=== PATIENT | male | born 1995 | race Caucasian/White ===

== ENCOUNTER 2019-06-10 00:41 | Emergency (ER) | payer OTHER ==
[2019-06-10 04:47] LABS: Absolute Lymphocytes (CBC) 0.6 K/uL (0.7-4.9); Basophils % 0.2 % (0-1.3); Eosinophils % 0.1 % (0-4.4); Hematocrit 43.8 % (39.6-49.0); Lymphocytes % 11.5 % (15.3-44.8); Monocytes % 10.7 % (3.3-12.3); RBC Red Blood Cell Count 4.91 M/uL (4.33-5.43)
[2019-06-10 04:48] LABS: Albumin 4.1 g/dL (3.4-5.0); Bilirubin Direct 0.3 mg/dL (0-0.2); Bilirubin Total 1.6 mg/dL (0.2-1.0); Potassium 3.8 mmol/L (3.5-5.1); Protein, Total 7.3 g/dL (6.4-8.2)
--- NOTE | 2019-06-10 06:06 | ER ---
Nurse's Notes [facility] Name: Dakota Cahs Age: 23 yrs Sex: Male : 1995 Arrival Date: 06/10/2019 Time: 00:48 Bed 5 Private MD: Diagnosis: Unspecified abdominal pain;Enteritis Presentation: 06/10 00:56 Presenting complaint: Patient states: N/V/D central abd pain since noon. Transition of ak1 care: patient was not received from another setting of care. Onset of symptoms was June 10, 2019. Risk Assessment: Do you want to hurt yourself or someone else? Patient reports no desire to harm self or others. Initial Sepsis Screen: Does the patient meet any 2 criteria? No. Patient's initial sepsis screen is negative. Does the patient have a suspected source of infection? No. Patient's initial sepsis screen is negative. Care prior to arrival: None. 00:56 Method Of Arrival: Ambulatory ak1 00:56 Acuity: SELAM 3 ak1 Triage Assessment: 00:55 General: Appears in no apparent distress. Behavior is calm, cooperative. Pain: ak1 Complains of pain in umbilical area. GI: Reports upper abdominal pain, diarrhea, nausea, vomiting. Historical: - Allergies: 00:55 Sulfa (Sulfonamide Antibiotics); ak1 - Home Meds: 00:55 None [Active]; ak1 - PMHx: 00:55 None; ak1 - PSHx: 00:55 None; ak1 - Immunization history:: Adult Immunizations unknown. - Social history:: Smoking status: Patient/guardian denies using tobacco. - Ebola Screening: : No symptoms or risks identified at this time. - Family history:: not pertinent. - Hospitalizations: : No recent hospitalization is reported. Screenin:36 Abuse screen: Denies threats or abuse. Nutritional screening: No deficits noted. bb Tuberculosis screening: No symptoms or risk factors identified. Fall Risk None identified. Assessment: 01:20 General: Appears in no apparent distress. uncomfortable, Behavior is calm, cooperative. bb Pain: Complains of pain in abdomen. Neuro: Level of Consciousness is awake, alert, obeys commands, Oriented to person, place, time, situation. Cardiovascular: Heart tones S1 S2 present Capillary refill < 3 seconds Patient's skin is warm and dry. Pulses are palpable in right radial artery and left radial artery Edema is absent. Respiratory: Airway is patent Respiratory effort is even, unlabored, Respiratory pattern is regular. GI: Abdomen is non-distended, Bowel sounds present X 4 quads. Abd is soft X 4 quads Abdomen is tender to palpation in left upper quadrant Reports upper abdominal pain, diarrhea, vomiting. Derm: Skin is pink, warm \T\ dry. Musculoskeletal: Circulation, motion, and sensation intact. 02:40 Reassessment: Patient and/or family updated on plan of care and expected duration. Pain bb level reassessed. Patient is alert, oriented x 3, equal unlabored respirations, skin warm/dry/pink. pt states he is still having abdominal pain Dr Patel notified new orders received pt medicated see JAN. CT notified pt ready for cat scan. 03:40 Reassessment: Patient and/or family updated on plan of care and expected duration. Pain bb level reassessed. Patient is alert, oriented x 3, equal unlabored respirations, skin warm/dry/pink. Patient states feeling better. 04:32 Reassessment: pt appears to be sleeping, eyes closed, resp unlabored, IV site intact, bb no erythema or edema noted. 04:59 Reassessment: pt transported to CT via wheelchair with technology officer. bb 05:41 Reassessment: Patient and/or family updated on plan of care and expected duration. Pain bb level reassessed. Patient is alert, oriented x 3, equal unlabored respirations, skin warm/dry/pink. IV site intact with no erythema or edema noted awaiting results of CT scan Patient states feeling better. Patient states symptoms have improved. Vital Signs: 00:55 BP 130 / 76; Pulse 105; Resp 18; Temp 98.4; Pulse Ox 97% on R/A; Weight 104.33 kg (R); ak1 Height 5 ft. 11 in. (180.34 cm) (R); Pain 6/10; 02:53 BP 111 / 71; Pulse 97; Resp 16 S; Pulse Ox 99% on R/A; bb 03:45 BP 115 / 73; Pulse 76; Resp 16; Pulse Ox 97% on R/A; Pain 0/10; bb 04:33 BP 113 / 80; Pulse 83; Resp 16; Pulse Ox 96% on R/A; bb 05:41 BP 111 / 68; Pulse 92; Resp 16 S; Temp 99.6(O); Pulse Ox 98% on R/A; Pain 2/10; bb 06:20 BP 119 / 78; Pulse 81; Resp 18; Pulse Ox 96% on R/A; Pain 1/10; tl2 00:55 Body Mass Index 32.08 (104.33 kg, 180.34 cm) ak1 ED Course: 00:48 Patient arrived in ED. ds1 00:55 Arm band placed on Patient placed in an exam room, on a stretcher, Patient notified of ak1 wait time. 00:57 Triage completed. ak1 01:00 Louie Patel MD is Attending Physician. rn 01:20 Initial lab(s) drawn, by me, sent to lab. Inserted saline lock: 20 gauge in right bb antecubital area, using aseptic technique. Blood collected. 01:36 Gaye Neal RN is Primary Nurse. bb 01:36 Patient has correct armband on for positive identification. Placed in gown. Bed in low bb position. Call light in reach. Side rails up X 1. Adult w/ patient. Pulse ox on. NIBP on. Warm blanket given. 05:22 CT Abd/Pelvis - IV Contrast Only In Process Unspecified. EDMS 06:20 No provider procedures requiring assistance completed. IV discontinued, intact, tl2 bleeding controlled, No redness/swelling at site. Pressure dressing applied. Administered Medications: 01:27 Drug: Phenergan 12.5 mg Route: IVP; Site: right antecubital; bb 02:51 Follow up: Response: No adverse reaction; No change in condition bb 01:27 Drug: NS 0.9% 1000 ml Route: IV; Rate: 1000 ml; Site: right antecubital; bb 02:25 Follow up: IV Status: Completed infusion; IV Intake: 1000ml bb 03:05 Drug: Demerol 25 mg Route: IVP; Site: right antecubital; bb 04:00 Follow up: Response: Pain is decreased bb Intake: 02:25 IV: 1000ml; Total: 1000ml. bb Outcome: 06:04 Discharge ordered by . rn 06:20 Discharged to home ambulatory, with family. tl2 06:20 Condition: stable 06:20 Discharge instructions given to patient, Instructed on discharge instructions, follow up and referral plans. medication usage, Demonstrated understanding of instructions, follow-up care, medications, Prescriptions given X 2. 06:22 Patient left the ED. tl2 Signatures: Dispatcher [employer] EDMS Jeannie Hale Gaye Wallace, RN RN bb Louie Patel MD MD rn Krenek, Amber, RN RN ak1 Nelsy Hopson RN RN tl2 Corrections: (The following items were deleted from the chart) 04:32 03:58 BP 115 / 73; Pulse 87bpm; Resp 18bpm; Pulse Ox 96% RA; tl2 bb 05:00 04:32 Reassessment: pt appears to be sleeping, eyes closed, resp unlabored, IV site bb intact, no erythema or edema noted, pt awaiting CT results bb
--- NOTE | 2019-06-10 06:06 | EDPHYS ---
Physician Documentation [facility] Name: Dakota Cash Age: 23 yrs Sex: Male : 1995 Arrival Date: 06/10/2019 Time: 00:48 Bed 5 Private MD: ED Physician Louie Patel HPI: 06/10 02:14 This 23 yrs old Male presents to ER via Ambulatory with complaints of rn Abdominal Pain, Vomiting. 02:14 The patient presents to the emergency department with nausea, vomiting, abdominal pain. rn Onset: The symptoms/episode began/occurred yesterday. Possible causes: unknown. The symptoms are aggravated by nothing. The symptoms are alleviated by nothing. Severity of symptoms: At their worst the symptoms were moderate in the emergency department the symptoms are unchanged. The patient has not experienced similar symptoms in the past. Reports periumbilical pain assoc with vomiting and diarrhea, began yesterday afternoon, not improving, no migration, no appetite, no fever, no blood. . Historical: - Allergies: 00:55 Sulfa (Sulfonamide Antibiotics); ak1 - Home Meds: 00:55 None [Active]; ak1 - PMHx: 00:55 None; ak1 - PSHx: 00:55 None; ak1 - Immunization history:: Adult Immunizations unknown. - Social history:: Smoking status: Patient/guardian denies using tobacco. - Ebola Screening: : No symptoms or risks identified at this time. - Family history:: not pertinent. - Hospitalizations: : No recent hospitalization is reported. ROS: 02:14 Constitutional: Negative for fever, chills, and weight loss, Eyes: Negative for injury, rn pain, redness, and discharge, Neck: Negative for injury, pain, and swelling, Cardiovascular: Negative for chest pain, palpitations, and edema, Respiratory: Negative for shortness of breath, cough, wheezing, and pleuritic chest pain, Abdomen/GI: + abd pain and vomiting/diarrhea MS/Extremity: Negative for injury and deformity, Skin: Negative for injury, rash, and discoloration, Neuro: Negative for headache, weakness, numbness, tingling, and seizure. Exam: 02:14 Constitutional: This is a well developed, well nourished patient who is awake, alert, rn and in no acute distress. Head/Face: Normocephalic, atraumatic. ENT: dry MM Cardiovascular: Tachycardic, regular, no murmur Respiratory: Lungs have equal breath sounds bilaterally, clear to auscultation. No increased work of breathing, no retractions or nasal flaring. Abdomen/GI: soft, + periumbilical tenderness, no rebound, no peritoneal signs, no tenderness RLQ Skin: Warm, dry MS/ Extremity: Pulses equal, no cyanosis. Neurovascular intact. Full, normal range of motion. Equal circumference. Neuro: Awake and alert, GCS 15, oriented to person, place, time, and situation. Cranial nerves II-XII grossly intact. Motor strength 5/5 in all extremities. Sensory grossly intact. Cerebellar exam normal. Normal gait. Vital Signs: 00:55 BP 130 / 76; Pulse 105; Resp 18; Temp 98.4; Pulse Ox 97% on R/A; Weight 104.33 kg (R); ak1 Height 5 ft. 11 in. (180.34 cm) (R); Pain 6/10; 02:53 BP 111 / 71; Pulse 97; Resp 16 S; Pulse Ox 99% on R/A; bb 03:45 BP 115 / 73; Pulse 76; Resp 16; Pulse Ox 97% on R/A; Pain 0/10; bb 04:33 BP 113 / 80; Pulse 83; Resp 16; Pulse Ox 96% on R/A; bb 05:41 BP 111 / 68; Pulse 92; Resp 16 S; Temp 99.6(O); Pulse Ox 98% on R/A; Pain 2/10; bb 06:20 BP 119 / 78; Pulse 81; Resp 18; Pulse Ox 96% on R/A; Pain 1/10; tl2 00:55 Body Mass Index 32.08 (104.33 kg, 180.34 cm) ak1 MDM: 01:00 Patient medically screened. rn 01:06 Refusal of service: The patient/guardian displays adequate decision making capability rn and despite a detailed discussion of alternatives, benefits, risks, and consequences refuses: CT Scan. 06:01 Differential diagnosis: Nonspecific abd pain, gastritis, appendicitis, diverticulitis, rn viral gastroenteritis, gastroenteritis. Data reviewed: vital signs, nurses notes, lab test result(s), radiologic studies, CT scan, and as a result, I will discharge patient. Counseling: I had a detailed discussion with the patient and/or guardian regarding: the historical points, exam findings, and any diagnostic results supporting the discharge/admit diagnosis, lab results, radiology results, the need for outpatient follow up, to return to the emergency department if symptoms worsen or persist or if there are any questions or concerns that arise at home. Response to treatment: the patient's symptoms have markedly improved after treatment, and as a result, I will discharge patient. Special discussion: I discussed with the patient/guardian in detail that at this point there is no indication for admission to the hospital. It is understood, however, that if the symptoms persist or worsen the patient needs to return immediately for re-evaluation. 06/10 01:06 Order name: Basic Metabolic Panel; Complete Time: 04:51 rn 06/10 01:06 Order name: CBC with Diff; Complete Time: 04:51 rn 06/10 01:06 Order name: Hepatic Function; Complete Time: 04:51 rn 06/10 01:06 Order name: Lipase; Complete Time: 04:51 rn 06/10 02:49 Order name: CT Abd/Pelvis - IV Contrast Only rn 06/10 01:06 Order name: IV Saline Lock; Complete Time: 01:28 rn 06/10 01:06 Order name: Labs collected and sent; Complete Time: 01:28 rn Administered Medications: 01:27 Drug: Phenergan 12.5 mg Route: IVP; Site: right antecubital; bb 02:51 Follow up: Response: No adverse reaction; No change in condition bb 01:27 Drug: NS 0.9% 1000 ml Route: IV; Rate: 1000 ml; Site: right antecubital; bb 02:25 Follow up: IV Status: Completed infusion; IV Intake: 1000ml bb 03:05 Drug: Demerol 25 mg Route: IVP; Site: right antecubital; bb 04:00 Follow up: Response: Pain is decreased bb Disposition: 06/10/19 06:04 Discharged to Home. Impression: Unspecified abdominal pain, Enteritis. - Condition is Stable. - Discharge Instructions: Abdominal Pain, Adult, Viral Gastroenteritis, Adult. - Prescriptions for Zofran ODT 4 mg Oral tablet,disintegrating - place 1 tablet by TRANSLINGUAL route every 8 hours As needed; 20 tablet. Tylenol- Codeine #3 300-30 mg Oral Tablet - take 1 tablet by ORAL route every 6 hours As needed; 15 tablet. - Medication Reconciliation Form, Thank You Letter, Antibiotic Education, Prescription Opioid Use form. - Follow up: Private Physician; When: As needed; Reason: Recheck today's complaints, Re-evaluation by your physician. - Problem is new. - Symptoms have improved. Signatures: Dispatcher [employer] EDGaye Machado RN RN Louie Ivory MD MD rn Krenek, Amber, RN RN ak1 Nelsy Hopson RN RN tl2 Corrections: (The following items were deleted from the chart) 06:22 06:04 06/10/2019 06:04 Discharged to Home. Impression: Unspecified abdominal pain; tl2 Enteritis. Condition is Stable. Forms are Medication Reconciliation Form, Thank You Letter, Antibiotic Education, Prescription Opioid Use. Follow up: Private Physician; When: As needed; Reason: Recheck today's complaints, Re-evaluation by your physician. Problem is new. Symptoms have improved. rn
--- NOTE | 2019-06-10 10:00 | RAD REPORT ---
EXAM DESCRIPTION: CT ABDOMEN AND PELVIS WITH CONTRAST CLINICAL HISTORY: Periumbilical pain COMPARISON: None Available. TECHNIQUE: CT of the abdomen and pelvis performed following IV administration of iodinated contrast. DLP: 2197.9 mGycm FINDINGS: Lung Bases: The visualized lung bases are clear. Bones: No destructive bone lesions identified. Abdomen: Liver: The liver has normal size and decreased density. No intrahepatic mass or biliary dilatation. Gallbladder: No calcified gallstones. Spleen, Pancreas, and Adrenal Glands: The spleen, pancreas, and adrenal glands are unremarkable. Kidneys: The kidneys have normal size and contour without evidence of solid mass or hydronephrosis. Vasculature: The aorta and IVC have normal caliber and position. The portal vein is patent. The pro ximal visceral and renal arteries are patent. Stomach: The stomach and duodenum have normal course. Other: No free intraperitoneal air. Small fat-containing umbilical hernia. No free fluid or lymphad enopathy. Pelvis: Bladder: Urinary bladder is unremarkable. Bowel: No dilated loops of large or small bowel. Appendix: Normal appendix. Pelvis: Prostate is not enlarged. IMPRESSION: 1. No acute inflammatory or obstructive process identified. 2. Hepatic steatosis. This exam was performed according to our departmental dose-optimization program, which includes autom ated exposure control, adjustment of the mA and/or kV according to patient size and/or use of iterati ve reconstruction technique. Electronically signed by: Dominic Brooks 06/10/2019 5:53 AM CDT Due to temporary technical issues with the PACS/Fluency reporting system, reports are being signed by the in house radiologist as a courtesy to ensure prompt reporting. The interpreting radiologist is f ully responsible for the content of the report.
== END 2019-06-10 06:22 | disposition home or self-care (01) ==
LOC: ER 00:41
DX: K52.9 Noninfective gastroenteritis and colitis, unspecified (principal); Z88.2 Allergy status to sulfonamides
CPT/HCPCS: 36415; 74177; 80048; 80076; 83690; 85025; 96361; 96374; 96375; 99284; Q9967

== ENCOUNTER 2021-12-22 01:42 | Observation (INO) | payer OTHER ==
[2021-12-22 02:18] LABS: Absolute Lymphocytes (CBC) 3.3 K/uL (0.7-4.9); Hematocrit 43.6 % (39.6-49.0); Lymphocytes % 48.8 % (15.3-44.8); MPV 7.5 fL (7.6-11.3); RBC Red Blood Cell Count 4.88 M/uL (4.33-5.43)
[2021-12-22 02:38] LABS: Albumin 3.7 g/dL (3.4-5.0); Bilirubin Direct 0.1 mg/dL (0-0.2); Bilirubin Total 0.7 mg/dL (0.2-1.0); Potassium 3.7 mmol/L (3.5-5.1); Protein, Total 7.1 g/dL (6.4-8.2)
[2021-12-22] MEDS ORDERED: NA CHLORIDE 0.9% 1,000 ML ONE ×2 (03:15→04:50)
[2021-12-22 04:23] LABS: Urine Blood Negative (Negative); Urine Glucose Negative (Negative); Urine Protein Negative (Negative); Urine Specific Gravity 1.025 (1.005-1.030); Urine pH 5.5 (5.0-7.0)
--- NOTE | 2021-12-22 04:31 | EDPHYS ---
Physician Documentation [facility] Name: Dakota Cash Age: 26 yrs Sex: Male : 1995 Arrival Date: 12/22/2021 Time: 01:44 Bed 5 Private MD: ED Physician Souleymane Jones HPI: 12/22 01:48 This 26 yrs old Male presents to ER via Unassigned with complaints of Abdominal Pain.. mh7 01:49 The patient presents with abdominal pain in the epigastric area. Onset: The mh7 symptoms/episode began/occurred this morning, today. The symptoms radiate to back. Associated signs and symptoms: Pertinent negatives: nausea, vomiting, and diarrhea, nausea and vomiting, anorexia, blood in stools, chest pain, constipation, diarrhea, dysuria, fever, headache, hematuria, nausea, palpitations, shortness of breath, testicular pain, vomiting, vomiting blood. The symptoms are described as intermittent, vague, waxing/waning. Modifying factors: The symptoms are alleviated by nothing, the symptoms are aggravated by drinking. Severity of pain: At its worst the pain was moderate today, in the emergency department the pain has improved markedly. 01:49 Patient states that he started having pain in his upper abdominal area after he drank a mh7 bottle of water this morning. He states the pain radiated to his back. He denies any chest pain, shortness of breath, fever, cough, nausea, vomiting, diarrhea, dysuria, or other complaints. He reports that his symptoms have mostly resolved.. Historical: - Allergies: 01:54 Sulfa (Sulfonamide Antibiotics); sm5 - Home Meds: 01:54 None [Active]; sm5 - PMHx: 01:54 None; sm5 - PSHx: 01:54 Vasectomy; sm5 - Immunization history:: Client reports having NOT received the Covid vaccine. - Social history:: Smoking status: Patient denies any tobacco usage or history of. ROS: 01:49 Constitutional: Negative for fever, chills, and weight loss, Eyes: Negative for injury, mh7 pain, redness, and discharge, ENT: Negative for injury, pain, and discharge, Neck: Negative for injury, pain, and swelling, Cardiovascular: Negative for chest pain, palpitations, and edema, Respiratory: Negative for shortness of breath, cough, wheezing, and pleuritic chest pain, Back: Negative for injury and pain, : Negative for injury, bleeding, discharge, and swelling, MS/Extremity: Negative for injury and deformity, Skin: Negative for injury, rash, and discoloration, Neuro: Negative for headache, weakness, numbness, tingling, and seizure, Psych: Negative for depression, anxiety, suicide ideation, homicidal ideation, and hallucinations, Allergy/Immunology: Negative for hives, rash, and allergies, Endocrine: Negative for neck swelling, polydipsia, polyuria, polyphagia, and marked weight changes, Hematologic/Lymphatic: Negative for swollen nodes, abnormal bleeding, and unusual bruising. Exam: 01:49 Constitutional: This is a well developed, well nourished patient who is awake, alert, mh7 and in no acute distress. Head/Face: Normocephalic, atraumatic. Eyes: Pupils equal round and reactive to light, extra-ocular motions intact. Lids and lashes normal. Conjunctiva and sclera are non-icteric and not injected. Cornea within normal limits. Periorbital areas with no swelling, redness, or edema. Neck: Trachea midline, no thyromegaly or masses palpated, and no cervical lymphadenopathy. Supple, full range of motion without nuchal rigidity, or vertebral point tenderness. No Meningismus. Chest/axilla: Normal chest wall appearance and motion. Nontender with no deformity. No lesions are appreciated. Cardiovascular: Regular rate and rhythm with a normal S1 and S2. No gallops, murmurs, or rubs. Normal PMI, no JVD. No pulse deficits. Respiratory: Lungs have equal breath sounds bilaterally, clear to auscultation and percussion. No rales, rhonchi or wheezes noted. No increased work of breathing, no retractions or nasal flaring. Back: No spinal tenderness. No costovertebral tenderness. Full range of motion. Skin: Warm, dry with normal turgor. Normal color with no rashes, no lesions, and no evidence of cellulitis. MS/ Extremity: Pulses equal, no cyanosis. Neurovascular intact. Full, normal range of motion. Neuro: Awake and alert, GCS 15, oriented to person, place, time, and situation. Cranial nerves II-XII grossly intact. Motor strength 5/5 in all extremities. Sensory grossly intact. Cerebellar exam normal. Normal gait. Psych: Awake, alert, with orientation to person, place and time. Behavior, mood, and affect are within normal limits. 01:49 Abdomen/GI: Inspection: obese Bowel sounds: normal, in all quadrants, Palpation: mild mh7 abdominal tenderness, in the epigastric area, mass, is not appreciated, rebound tenderness, is not appreciated, voluntary guarding, is not appreciated, involuntary guarding, is not appreciated, no appreciated organomegaly, Rectal exam: the exam is deferred, because of patient request, Indicators: McBurney's point is not tender, Millan's sign is negative, Rovsing's sign is negative, Obturator sign is negative, Psoas sign is negative, Liver: no appreciated palpable abnormalities, Hernia: not appreciated. Vital Signs: 01:52 BP 120 / 98; Pulse 98; Resp 18; Temp 98.1(O); Pulse Ox 98% on R/A; Weight 106.59 kg; [facility] Height 5 ft. 11 in. (180.34 cm); 02:00 BP 115 / 91; Pulse 84; Resp 18 S; Pulse Ox 98% on R/A; al4 03:00 BP 122 / 93; Pulse 79; Resp 18 S; Pulse Ox 100% on R/A; al4 03:30 BP 123 / 95; Pulse 83; Resp 20 S; Pulse Ox 100% on R/A; al4 04:00 BP 129 / 89; Pulse 91; Resp 18 S; Pulse Ox 100% on R/A; al4 05:00 BP 118 / 88; Pulse 69; Resp 15 S; Pulse Ox 99% on R/A; al4 01:52 Body Mass Index 32.78 (106.59 kg, 180.34 cm) [facility] MDM: 04:28 Differential diagnosis: bowel obstruction, cholecystitis, Cholelithiasis, gastritis, mh7 gastroesophageal reflux disease, non-specific abd pain, pancreatitis, Peptic Ulcer Disease, Ureterolithiasis. Data reviewed: vital signs, nurses notes, lab test result(s), cardiac enzymes, CBC, electrolytes, EKG, radiologic studies, CT scan, plain films. Data interpreted: Pulse oximetry: on room air is 100 %. Interpretation: normal. Counseling: I had a detailed discussion with the patient and/or guardian regarding: the historical points, exam findings, and any diagnostic results supporting the discharge/admit diagnosis, lab results, radiology results, the need for further work-up and treatment in the hospital. Response to treatment: the patient's symptoms have mildly improved after treatment. 04:30 Patient medically screened. [facility] 12/22 01:47 Order name: Basic Metabolic Panel; Complete Time: 03:02 [facility] 12/22 01:47 Order name: CBC with Diff; Complete Time: 02:29 [facility] 12/22 01:47 Order name: Hepatic Function; Complete Time: 03:02 [facility] 12/22 01:47 Order name: Lipase; Complete Time: 03:02 [facility] 12/22 02:02 Order name: Troponin High Sensitivity [facility] 12/22 02:02 Order name: Troponin High Sensitivity; Complete Time: 03:02 [facility] 12/22 02:02 Order name: Chest Single View XRAY [facility] 12/22 03:03 Order name: CT Abd/Pelvis - IV Contrast Only [facility] 12/22 03:35 Order name: ETOH Level [facility] 12/22 03:55 Order name: Lipid Profile [facility] 12/22 03:56 Order name: COVID-19 SARS RT PCR (Document "Date of Onset" if Symptomatic) [facility] 12/22 04:21 Order name: Urine Dipstick-Ancillary [facility] 12/22 01:47 Order name: IV Saline Lock; Complete Time: 01:52 [facility] 12/22 01:47 Order name: Labs collected and sent; Complete Time: 02:00 [facility] 12/22 01:47 Order name: Urine Dipstick-Ancillary (obtain specimen); Complete Time: 04:23 [facility] 12/22 01:47 Order name: EKG; Complete Time: 01:48 [facility] 12/22 01:47 Order name: EKG - Nurse/Tech; Complete Time: 01:52 [facility] Administered Medications: 03:38 Drug: NS 0.9% 1000 ml Route: IV; Rate: 1000 ml; Site: right antecubital; al4 04:57 Follow up: Response: No adverse reaction; IV Status: Completed infusion; IV Intake: al4 1000ml 04:52 Drug: NS 0.9% 1000 ml Route: IV; Rate: 1000 ml; Site: right antecubital; al4 05:46 Follow up: Response: No adverse reaction; IV Status: Completed infusion; IV Intake: al4 1000ml Disposition Summary: 12/22/21 04:30 Hospitalization Ordered Hospitalization Status: Inpatient Admission [facility] Provider: Horace Rueda Location: Telemetry/MedSur (Inpatient) [facility] Condition: Stable [facility] Problem: new [facility] Symptoms: have improved [facility] Bed/Room Type: Standard [facility] Room Assignment: 205(12/22/21 04:55) cg Diagnosis - Acute Pancreatitis [facility] Forms: - Medication Reconciliation Form [facility] - SBAR form [facility] Signatures: Dispatcher [employer] Zeina Noel, RN RN cg Souleymane Jones MD MD 7 Chemo Godwin RN RN as6 Cecilio Durán4 Marguerite Corona RN RN sm5 Corrections: (The following items were deleted from the chart) 04:55 04:30 [facility] cg
--- NOTE | 2021-12-22 04:31 | P.HP ---
Certification for Inpatient Patient admitted to: Inpatient With expected LOS: >2 Midnights Patient will require the following post-hospital care: None Practitioner: I am a practitioner with admitting privileges, knowledge of patient current condition, hospital course, and medical plan of care. Services: Services provided to patient in accordance with Admission requirements found in Title 42 Section 412.3 of the Code of Federal Regulations Patient History Date of Service: 12/22/21 Reason for admission: Acute pancreatitis History of Present Illness: 26-year-old male with no known past medical history presents the emergency department for epigastric pain. Patient reports having a vasectomy earlier this morning around 10 AM, after waking from a nap attempted to drink some water and shortly after developed some significant epigastric pain. Patient was evaluated in the emergency department labs were significant for lipase of 4250 alcohol level negative, patient does not drink frequently reports he drinks maybe once a month, lipid panel pending. CT abdomen pelvis negative for any acute findings ED provider wishes to admit for further evaluation and management of acute pancreatitis. - Past Medical/Surgical History -: None -: Vasectomy Psychosocial/ Personal History: Patient lives at home with - Social History Smoking Status: Never smoker Alcohol use: No CD- Drugs: No Caffeine use: No Place of Residence: Home Review of Systems 10-point ROS is otherwise unremarkable Gastrointestinal: Abdominal Pain Physical Examination - Physical Exam General: Alert, In no apparent distress, Oriented x3 HEENT: Atraumatic, PERRLA, Mucous membr. moist/pink, EOMI, Sclerae nonicteric Neck: Supple, 2+ carotid pulse no bruit, No LAD, Without JVD or thyroid abnormality Respiratory: Clear to auscultation bilaterally, Normal air movement Cardiovascular: Regular rate/rhythm, Normal S1 S2 Gastrointestinal: Normal bowel sounds, Tenderness (Mild epigastric tenderness) Musculoskeletal: No tenderness Integumentary: No rashes Neurological: Normal gait, Normal speech, Normal strength at 5/5 x4 extr, Normal tone, Normal affect Lymphatics: No axilla or inguinal lymphadenopathy - Studies Laboratory Data (last 24 hrs) 12/22/21 01:50: Triglycerides 117, Cholesterol 210 H, HDL Cholesterol 44, Cholesterol/HDL Ratio 4.77 12/22/21 01:50: WBC 6.70, Hgb 14.7, Hct 43.6, Plt Count 261 12/22/21 01:50: Sodium 140, Potassium 3.7, BUN 15, Creatinine 1.17, Glucose 106, Total Bilirubin 0.7, AST 16, ALT 37, Alkaline Phosphatase 64, Lipase 4250 H Assessment and Plan - Plan Assessment: Acute pancreatitis unknown etiology Plan: Acute pancreatitis unknown etiology: N.p.o., IVF, as needed pain medications, trend lipase level. CT negative for acute findings no gallbladder findings. No alcohol abuse reported, lipid panel pending. Patient did have vasectomy today this morning. Anticipate clinical improvement over the course of next 24 to 48 hours, possibly clear liquids this evening. DVT PPX: Lovenox Code status: Full Discharge Plan: Home Plan to discharge in: 72 Hours - Advance Directives Does patient have a Living Will: No Does patient have a Durable POA for Healthcare: No - Code Status/Comfort Care Code Status Assessed: Yes (Full code) Critical Care: No Time Spent Managing Pts Care (In Minutes): 55
--- NOTE | 2021-12-22 04:31 | ER ---
Nurse's Notes [facility] Name: Dakota Cash Age: 26 yrs Sex: Male : 1995 Arrival Date: 12/22/2021 Time: 01:44 Bed 5 Private MD: Diagnosis: Acute Pancreatitis Presentation: 12/22 01:52 Chief complaint: EMS states: pt had vasectomy at 10am. went to bed and woke up, drank sm5 water, started having mid epigastric/chest pain that went to his back. Coronavirus screen: At this time, the client does not indicate any symptoms associated with coronavirus-19. Ebola Screen: No symptoms or risks identified at this time. Initial Sepsis Screen: Does the patient meet any 2 criteria? No. Patient's initial sepsis screen is negative. Does the patient have a suspected source of infection? No. Patient's initial sepsis screen is negative. Risk Assessment: Do you want to hurt yourself or someone else? Patient reports no desire to harm self or others. Onset of symptoms was December 22, 2021. 01:52 Method Of Arrival: EMS: [place] [id number] 01:52 Acuity: SELAM 3 5 Triage Assessment: 01:55 General: Appears in no apparent distress. Behavior is appropriate for age. Pain: 5 Complains of pain in chest and epigastric. Cardiovascular: Reports chest pain, Capillary refill < 3 seconds Patient's skin is warm and dry. Rhythm is sinus rhythm. Respiratory: No deficits noted. Airway is patent Trachea midline Respiratory effort is even, unlabored. GI: Reports epigastric pain. Historical: - Allergies: 01:54 Sulfa (Sulfonamide Antibiotics); sm5 - Home Meds: 01:54 None [Active]; sm5 - PMHx: 01:54 None; sm5 - PSHx: 01:54 Vasectomy; sm5 - Immunization history:: Client reports having NOT received the Covid vaccine. - Social history:: Smoking status: Patient denies any tobacco usage or history of. Screenin:54 Abuse screen: Denies threats or abuse. Denies injuries from another. Nutritional sm5 screening: No deficits noted. Tuberculosis screening: No symptoms or risk factors identified. Fall Risk No fall in past 12 months (0 pts). No secondary diagnosis (0 pts). IV access (20 points). Ambulatory Aid- None/Bed Rest/Nurse Assist (0 pts). Gait- Normal/Bed Rest/Wheelchair (0 pts) Mental Status- Oriented to own ability (0 pts). Total Domínguez Fall Scale indicates No Risk (0-24 pts). Assessment: 01:56 Pain: Pain radiates to back Pain began 1 hour ago. [facility] 02:00 General: Appears in no apparent distress. comfortable, Behavior is calm, cooperative, al4 appropriate for age. Pain: Complains of pain in upper abdominal Pain radiates to back Pain began suddenly after drinking water. Neuro: Level of Consciousness is awake, alert, obeys commands, Oriented to person, place, time, situation. Cardiovascular: Capillary refill < 3 seconds Patient's skin is warm and dry. Rhythm is sinus rhythm. Respiratory: Airway is patent Respiratory effort is even, unlabored, Respiratory pattern is regular, symmetrical. GI: Abdomen is non-distended, Reports upper abdominal pain, after drinking water. : No signs and/or symptoms were reported regarding the genitourinary system. EENT: No signs and/or symptoms were reported regarding the EENT system. Derm: No signs and/or symptoms reported regarding the dermatologic system. Musculoskeletal: Capillary refill < 3 seconds, Range of motion: intact in all extremities. 03:00 Reassessment: Patient is alert, oriented x 3, equal unlabored respirations, skin al4 warm/dry/pink. 04:00 Reassessment: Patient is alert, oriented x 3, equal unlabored respirations, skin al4 warm/dry/pink. 04:53 Reassessment: Patient is alert, oriented x 3, equal unlabored respirations, skin al4 warm/dry/pink. patient updated on plan of care. patient is resting comfortably. 05:15 Reassessment: Attempted report. Spoke to Amira, I was told she will call me back. al4 Vital Signs: 01:52 BP 120 / 98; Pulse 98; Resp 18; Temp 98.1(O); Pulse Ox 98% on R/A; Weight 106.59 kg; sm5 Height 5 ft. 11 in. (180.34 cm); 02:00 BP 115 / 91; Pulse 84; Resp 18 S; Pulse Ox 98% on R/A; al4 03:00 BP 122 / 93; Pulse 79; Resp 18 S; Pulse Ox 100% on R/A; al4 03:30 BP 123 / 95; Pulse 83; Resp 20 S; Pulse Ox 100% on R/A; al4 04:00 BP 129 / 89; Pulse 91; Resp 18 S; Pulse Ox 100% on R/A; al4 05:00 BP 118 / 88; Pulse 69; Resp 15 S; Pulse Ox 99% on R/A; al4 01:52 Body Mass Index 32.78 (106.59 kg, 180.34 cm) 5 ED Course: 01:44 Patient arrived in ED. wm 01:46 Souleymane Jones MD is Attending Physician. 7 01:48 Cecilio Durán is Primary Nurse. al4 01:49 Inserted saline lock: 20 gauge in right antecubital area, using aseptic technique. al4 Blood collected. 01:54 Triage completed. 5 01:55 Arm band placed on left wrist. 5 01:55 Patient has correct armband on for positive identification. Bed in low position. Call [facility] light in reach. Side rails up X2. machine installer on. Pulse ox on. NIBP on. 01:56 No provider procedures requiring assistance completed. Patient maintains SpO2 5 saturation greater than 95% on room air. 02:00 Basic Metabolic Panel Sent. 5 02:00 CBC with Diff Sent. 5 02:01 Hepatic Function Sent. 5 02:01 Lipase Sent. sm5 02:15 Chest Single View XRAY In Process Unspecified. EDMS 03:13 Troponin High Sensitivity Sent. sm5 03:34 CT Abd/Pelvis - IV Contrast Only In Process Unspecified. EDMS 04:29 Horace Rueda DO is Hospitalizing Provider. [facility] 05:42 Patient admitted, IV remains in place. al4 Administered Medications: 03:38 Drug: NS 0.9% 1000 ml Route: IV; Rate: 1000 ml; Site: right antecubital; al4 04:57 Follow up: Response: No adverse reaction; IV Status: Completed infusion; IV Intake: al4 1000ml 04:52 Drug: NS 0.9% 1000 ml Route: IV; Rate: 1000 ml; Site: right antecubital; al4 05:46 Follow up: Response: No adverse reaction; IV Status: Completed infusion; IV Intake: al4 1000ml Intake: 04:57 IV: 1000ml; Total: 1000ml. al4 05:46 IV: 1000ml; Total: 2000ml. al4 Outcome: 04:30 Decision to Hospitalize by Provider. [facility] 05:40 Admitted to Med/surg room 205, Report called to RUDDY Mendoza al4 05:40 Condition: stable 05:40 Discharge instructions given to patient, Instructed on the need for admit, Demonstrated understanding of instructions. 06:03 Patient left the ED. al4 Signatures: Dispatcher [employer] EDMS Souleymane Jones MD MD 7 Lakeisha Robledo Alexis al4 Marguerite Corona RN RN sm5 Corrections: (The following items were deleted from the chart) 05:03 02:00 Pain: Complains of pain in chest Pain radiates to back Pain began suddenly after al4 drinking water al4 05:03 02:00 GI: No signs and/or symptoms were reported involving the gastrointestinal system. al4 al4 05:44 05:40 Admitted to Med/surg room 205, al4 al4
--- NOTE | 2021-12-22 05:53 | P.PN ---
Subjective Date of Service: 12/22/21 Primary Care Provider: none; Urology-Dr. Rojas Chief Complaint: Acute pancreatitis Subjective: Improving, Doing well (No significant nausea, vomiting or abdominal pain.) Physical Examination - Studies Laboratory Data (last 24 hrs) 12/22/21 01:50: Triglycerides 117, Cholesterol 210 H, HDL Cholesterol 44, Cholesterol/HDL Ratio 4.77 12/22/21 01:50: WBC 6.70, Hgb 14.7, Hct 43.6, Plt Count 261 12/22/21 01:50: Sodium 140, Potassium 3.7, BUN 15, Creatinine 1.17, Glucose 106, Total Bilirubin 0.7, AST 16, ALT 37, Alkaline Phosphatase 64, Lipase 4250 H Assessment & Plan Discharge Plan: Home Plan to discharge in: 24 Hours Physician Review Additional Text: COVID: Negative CT scan: No acute intra-abdominal abnormality. Pancreas appeared normal. Patient with fatty liver. Physical exam: General: Alert, In no apparent distress, Oriented x3 HEENT: Atraumatic, PERRLA, Mucous membr. moist/pink, EOMI, Sclerae nonicteric Neck: Supple, 2+ carotid pulse no bruit, No LAD, Without JVD or thyroid abnormality Respiratory: Clear to auscultation bilaterally, Normal air movement Cardiovascular: Regular rate/rhythm, Normal S1 S2 Gastrointestinal: No significant nausea or vomiting Musculoskeletal: No tenderness Integumentary: No rashes Neurological: Normal gait, Normal speech, Normal strength at 5/5 x4 extr, Normal tone, Normal affect Lymphatics: No axilla or inguinal lymphadenopathy Impression: Acute pancreatitis unknown etiology Status post vasectomy Plan: Acute pancreatitis unknown etiology: Lipase improved. Condition has significantly improved. No significant nausea, vomiting. Will start clear liquids. If tolerates clear liquids will advance to GI soft for lunch. CT scan shows no acute pancreatitis. Etiology unknown. Alcohol level negative. Lipid panel unremarkable. Will discuss with urology. Anticipate likely discharge as early as today or tomorrow. Reassess this afternoon. If the patient remains through tomorrow I will turn to service over to the hospitalist team who will continue his care. Status post vasectomy: Patient had procedure yesterday. Doing well at this time. Continue with antibioticLevaquin which was initiated and recommended by urology. DVT PPX: Lovenox Code status: Full code Discharge Plan: Home at discharge Time Spent Managing Pts Care (In Minutes): 55
[2021-12-22 06:02] VITALS: BMI 32.8
[2021-12-22 06:17] VITALS: O2SAT 98
[2021-12-22] MEDS ORDERED: MORPHINE 2 MG/ML SYR IV PRN (06:17)
[2021-12-22] MEDS ORDERED: NA CHLORIDE 0.9% 1,000 ML IV SCH ×2 (06:17→06:53)
[2021-12-22] MEDS ORDERED: ONDANSETRON 4 MG/2 ML VIAL IV PRN (06:17)
[2021-12-22] MEDS ORDERED: TRAMADOL HCL 50 MG TAB PO PRN (07:59)
[2021-12-22] MEDS ORDERED: HYDROCODONE/APAP 7.5/325 MG TAB PO PRN (07:59)
--- NOTE | 2021-12-22 08:34 | RAD REPORT ---
EXAM DESCRIPTION: Yannick Single View12/22/2021 2:14 am CLINICAL HISTORY: Congestion COMPARISON: none FINDINGS: The lungs appear clear of acute infiltrate. The heart is normal size IMPRESSION: No acute abnormalities displayed
[2021-12-22] MEDS ORDERED: ENOXAPARIN 40 MG/0.4 ML SQ SCH (09:00)
[2021-12-22] MEDS ORDERED: levoFLOXacin 750 MG TAB PO SCH (09:00)
[2021-12-22 13:25] VITALS: BP 120/76; TEMP 97.4
--- NOTE | 2021-12-22 13:57 | P.DS ---
Admission Date: 12/22/21 Discharge Date: 12/22/21 Primary Care Provider: Mily foote; Urology-Dr. Rojas Disposition: ROUTINE DISCHARGE Discharge Condition: GOOD Reason for Admission: Acute pancreatitis Consultations: none Procedures: COVID: Negative CT scan: Findings: Lung bases demonstrate to be clear. The liver demonstrated decreased attenuation corresponding to fatty liver. Otherwise the liver, gallbladder, pancreas, spleen, adrenal glands demonstrated to be unremarkable. No focal lesions noted. The kidneys demonstrated normal intake. There is a small left extrarenal pelvis. No evidence of nephrolithiasis or hydronephrosis. Grossly unopacified stomach, small bowel, large bowel demonstrate to be within normal range. No evidence for bowel dilation and/or free air. Appendix normal. Urinary bladder was partially distended with circumferential wall thickening most likely related to under distention. Prostate gland normal. Aorta demonstrates to be normal. There is no retroperitoneal lymphadenopathy. No ascites. Rest of soft tissue and bone structure within normal range. Impression No acute intra-abdominal process. Fatty infiltration of liver noted. CXR: COMPARISON: none FINDINGS: The lungs appear clear of acute infiltrate. The heart is normal size IMPRESSION: No acute abnormalities displayed Medical Problem List: Acute pancreatitis unknown etiology CT scan showing fatty liver Status post vasectomy Obesity, BMI 32.8 Brief History of Present Illness: 26-year-old male with no known past medical history presents the emergency department for epigastric pain. Patient reports having a vasectomy earlier this morning around 10 AM patient reported taking a nap and attempting to take some water. He had severe epigastric pain at that time.. He came to the ER and found to have elevated lipase. CT scan unremarkable except fatty liver. Patient was admitted for treatment. Hospital Course: Patient presented with abdominal pain secondary to acute pancreatitis etiology unknown. Patient had vasectomy yesterday. CT scan showed no acute process. Fatty liver identified. Pancreas appeared normal. No evidence of cholelithiasis. Patient does not drink. Lipid panel unremarkable. Etiology of pancreatitis unknown. Patient was given IV fluids with improvement. His diet was advanced. Patient tolerating GI soft diet at discharge. At discharge patient may continue with a soft bland diet for the next week. Recommend to establish care with GI in the future to further evaluate. Education on fatty liver and pancreatitis provided. Recommend follow-up with PCP to further monitor and address this hospitalization. Patient status post vasectomy. Otherwise stable. Patient will continue with Levaquin which was prescribed by urology. Patient with obesity, BMI 32.8. Lifestyle modification education provided. Vital Signs/Physical Exam: Temp Pulse Resp BP Pulse Ox 97.4 F 76 18 120/76 99 12/22/21 12:00 12/22/21 12:00 12/22/21 12:00 12/22/21 12:00 12/22/21 12:00 General: Alert, In no apparent distress, Oriented x3, Cooperative HEENT: Atraumatic Neck: Supple Respiratory: Clear to auscultation bilaterally, Normal air movement Cardiovascular: Normal pulses, Regular rate/rhythm Gastrointestinal: Normal bowel sounds, No tenderness, No masses, No rebound, No guarding Musculoskeletal: No erythema, No tenderness, No warmth Integumentary: No tenderness/swelling, No erythema, No warmth, No cyanosis Neurological: Normal speech, Normal strength at 5/5 x4 extr, Normal tone, Normal affect Laboratory Data at Discharge: WBC 6.70 K/uL (4.3-10.9) 12/22/21 01:50 Hgb 14.7 g/dL (13.6-17.9) 12/22/21 01:50 Hct 43.6 % (39.6-49.0) 12/22/21 01:50 Plt Count 261 K/uL (152-406) 12/22/21 01:50 Sodium 140 mmol/L (136-145) 12/22/21 01:50 Potassium 3.7 mmol/L (3.5-5.1) 12/22/21 01:50 BUN 15 mg/dL (7-18) 12/22/21 01:50 Creatinine 1.17 mg/dL (0.55-1.3) 12/22/21 01:50 Glucose 106 mg/dL (74-106) 12/22/21 01:50 Total Bilirubin 0.7 mg/dL (0.2-1.0) 12/22/21 01:50 AST 16 U/L (15-37) 12/22/21 01:50 ALT 37 U/L (12-78) 12/22/21 01:50 Alkaline Phosphatase 64 U/L (45-117) 12/22/21 01:50 Triglycerides 117 mg/dL (<150) 12/22/21 01:50 Cholesterol 210 mg/dL (<200) H 12/22/21 01:50 HDL Cholesterol 44 mg/dL (40-60) 12/22/21 01:50 Cholesterol/HDL Ratio 4.77 12/22/21 01:50 Lipase 1008 U/L (73-393) H 12/22/21 07:10 Home Medications: Codeine/APAP [Tylenol #3*] 300 mg PO PRN 12/22/21 levoFLOXacin [Levaquin*] 750 mg PO DAILY 12/22/21 Physician Discharge Instructions: Patient presented with abdominal pain secondary to acute pancreatitis etiology unknown. Patient had vasectomy yesterday. CT scan showed no acute process. Fatty liver identified. Pancreas appeared normal. No evidence of cholelithiasis. Patient does not drink. Lipid panel unremarkable. Etiology of pancreatitis unknown. Patient was given IV fluids with improvement. His diet was advanced. Patient tolerating GI soft diet at discharge. At discharge patient may continue with a soft bland diet for the next week. Recommend to establish care with GI in the future to further evaluate. Education on fatty liver and pancreatitis provided. Recommend follow-up with PCP to further monitor and address this hospitalization. Patient status post vasectomy. Otherwise stable. Patient will continue with Levaquin which was prescribed by urology. Patient with obesity, BMI 32.8. Lifestyle modification education provided. Diet: Soft bland Activity: Ad clive Followup: NONE,NONE [Primary Care Provider] - Time spent managing pt's care (in minutes): 55
--- NOTE | 2021-12-23 15:16 | EKG ---
Test Date: 2021-12-22 Test Time: 01:48:56 Wheel Polisher: NEVAEH MEASUREMENT RESULTS: Intervals: Rate: 83 LA: 136 QRSD: 76 QT: 346 QTc: 406 [place]: P: 18 LA: 136 QRS: 4 T: 4 INTERPRETIVE STATEMENTS: Normal sinus rhythm Normal ECG Compared to ECG 07/18/2007 13:34:28 Left-axis deviation no longer present Electronically Signed On 12-23-21 15:14:47 HVAC SERVICE TECHNICIAN by Mic Claudio
--- NOTE | 2021-12-23 15:24 | RAD REPORT ---
EXAM DESCRIPTION: CT - Abdomen Pelvis W Contrast - 12/22/2021 4:14 am CLINICAL HISTORY: 26 years, Male, ABD PAIN COMPARISON: None TECHNIQUE: Contrast-enhanced images of the abdomen and pelvis were performed utilizing 5 mm slice th ickness at 5 mm interval reconstruction from the lung bases to the ischial tuberosities after the adm inistration IV contrast. In addition multiplanar reformats in the coronal and sagittal plane were obtained and reviewed. This exam was performed according to our departmental dose-optimization protocol, which includes auto mated exposure control, adjustment of the mA and/or kV according to patient size and/or use of iterat immanuel reconstruction technique. FINDINGS: The lung bases demonstrate to be clear. The liver demonstrate decreased attenuation corresponding to fatty infiltration. Otherwise the liver, gallbladder, pancreas, spleen and adrenal glands demonstrate to be unremarkable, no focal lesions ar e noted. The kidneys demonstrate normal uptake of contrast media. There is a small left extrarenal pelvis. No evidence for nephrolithiasis and/or hydronephrosis. Grossly the unopacified stomach, small bowel and large bowel demonstrate to be within normal limits. There is no evidence for bowel dilatation/or free air. The appendix is normal. The urinary bladder was partially distended with circumferential wall thickening most likely related to underdistention. The prostate gland is normal. The aorta demonstrate to be normal. There is no retroperitoneal lymphadenopathy. There is no ascites. The rest of the soft tissue and bony structu res are within normal limits. IMPRESSION: No acute intra-abdominal process. Fatty infiltration of the liver. Electronically signed by: Yaakov Nunez MD 12/22/2021 3:48 AM CROSS TIE TRAM LOADER Due to temporary technical issues with the PACS/Fluency reporting system, reports are being signed by the in house radiologists without review as a courtesy to insure prompt reporting. The interpreting radiologist is fully responsible for the content of the report.
== END 2021-12-22 13:13 | disposition home or self-care (01) ==
LOC: ER 01:42 → INTOOBSV 05:04 → 2ND 05:04
PROVIDERS: ADMIT Family Medicine; ATTEND Family Medicine
DX: K85.90 Acute pancreatitis without necrosis or infection, unspecified (principal); K76.0 Fatty (change of) liver, not elsewhere classified; E66.9 Obesity, unspecified; Z68.32 Body mass index [BMI] 32.0-32.9, adult; Z71.3 Dietary counseling and surveillance; Z98.52 Vasectomy status; Z20.822 Contact with and (suspected) exposure to COVID-19; Z88.2 Allergy status to sulfonamides
CPT/HCPCS: 96361; 93005; 85025; 80048; 36415; 80320; 80061; 80076; 81003; 84484; 83690 ×2; 74177; 71045; 96360; 99285; U0003; Q9967; J1650; J7030 ×3; G0378